=== PATIENT | female | born 1950 | race Caucasian/White ===

== ENCOUNTER 2018-10-27 20:49 | Inpatient (IN) | payer MEDICARE, OTHER ==
[~2018-10-27] VITALS: Ht 170.2 cm; Wt 85.8 kg
[2018-10-27] MEDS ORDERED: PROPOFOL 100 ML IV PRN (20:52)
[2018-10-27] MEDS ORDERED: FENTANYL PF 100 MCG/2ML ONE (21:08)
--- NOTE | 2018-10-27 21:21 | NUR ---
PT ABLE TO COMMUNICATE THAT SHE IS IN PAIN. PT NODS HEAD WHEN ASKED IF SHE IS HAVING A HEADACHE. MD AWARE. PT MEDICATED PER NOV.
[2018-10-27 21:25] LABS: BASOPHILS # (AUTO) 0.06 x10^3/uL (0-0.1); BASOPHILS % (AUTO) 1 % (0-1); EOSINOPHILS # (AUTO) 0.01 x10^3/uL (0-0.4); EOSINOPHILS % (AUTO) 0 % (1-7); LYMPHOCYTES # (AUTO) 1.35 x10^3/uL (1-3.4); LYMPHOCYTES % (AUTO) 11 % (22-44); MD NO; MEAN CORPUSCULAR HEMOGLOBIN 31.1 pg (27.0-34.8); MEAN CORPUSCULAR HGB CONC 33.8 g/dL (32.4-35.8); MEAN CORPUSCULAR VOLUME 92.1 fL (80-100); MEAN PLATELET VOLUME 8.1 fL (7.4-10.4); MONOCYTES # (AUTO) 0.69 x10^3/uL (0.2-0.8); MONOCYTES % (AUTO) 6 % (2-9); NEUTROPHILS # (AUTO) 10.09 x10^3/uL (1.8-6.8); NEUTROPHILS % (AUTO) 83 % (42-75); PLATELET COUNT 298 x10^3/uL (130-400); RED BLOOD COUNT 4.76 x10^6/uL (3.82-5.3); RED CELL DISTRIBUTION WIDTH 14.7 % (9.6-15.2)
[2018-10-27] MEDS ORDERED: PHEN-418 PO (21:30)
[2018-10-27] MEDS ORDERED: IBUP-1222 PO (21:30)
[2018-10-27] MEDS ORDERED: PLEASE ENTER ALLERGIES MC SCH (21:30)
[2018-10-27] MEDS ORDERED: FENTANYL PF 100 MCG/2ML IVPush PRN (21:30)
[2018-10-27 21:39] LABS: INTERNATIONAL NORMALIZED RATIO 0.95 (0.93-1.1); PROTHROMBIN TIME 10.1 Seconds (9.6-11.5)
--- NOTE | 2018-10-27 22:41 | NUR ---
FAMILY AT BEDSIDE. POC DISCUSSED. FAMILY GIVEN WATER PER REQUEST. ALL QUESTIONS ANSWERED. FAMILY AWARE AWAITING NEUROLOGY DECISION AT THIS TIME.
--- NOTE | 2018-10-27 22:45 | NUR ---
PT REMAINS CALM, AWAKENS TO VERBAL COMMANDS. ABLE TO SHAKE AND NOD HEAD TO ANSWER QUESTIONS. NEURO EXAM REMAINS UNCHANGED FROM INITIAL.
[2018-10-27] MEDS ORDERED: PROPOFOL 100 ML IV ONE (23:19)
--- NOTE | 2018-10-27 23:29 | NUR ---
propofol drip initially primed per order of dr espana upon pts arrival. dr basilio assumed care and stated to not run propofol. entire bottle of propofol wasted in med room with marylou dia.
[2018-10-27] MEDS ORDERED: ENALAPRILAT 1.25 MG/ML, 2ML IV PRN (23:30)
[2018-10-27] MEDS ORDERED: DOCUSATE 100 MG CAPSULE PO PRN (23:30)
[2018-10-27] MEDS ORDERED: INSTRUCTION SEE COMMENTS XX ONE (23:30)
[2018-10-27] MEDS ORDERED: POLYETHYLENE GLYCOL 17 GM PACKET PO PRN (23:30)
[2018-10-27] MEDS ORDERED: PROMETHAZINE 25 MG/ML, 1ML IM PRN (23:30)
[2018-10-27] MEDS ORDERED: BISACODYL 10 MG SUPP PR PRN (23:30)
[2018-10-27] MEDS ORDERED: morphine SULFATE 10 MG/ML, 1ML IVPush PRN (23:30)
[2018-10-27] MEDS ORDERED: LABETALOL 5MG/ML, 20ML IV PRN (23:30)
[2018-10-28] MEDS ORDERED: FENTANYL PF 100 MCG/2ML IVPush ONE
[2018-10-28] MEDS ORDERED: PROPOFOL 100 ML IV PRN (00:34)
[2018-10-28] MEDS ORDERED: GLUCAGON 1 MG IM PRN (01:00)
[2018-10-28] MEDS ORDERED: BISACODYL 10 MG SUPP PR PRN (01:00)
[2018-10-28] MEDS ORDERED: SENNOSIDES 8.8 MG/5 ML ORAL SOL NG PRN (01:00)
[2018-10-28] MEDS ORDERED: LACTULOSE 20 GM/30 ML UDC NG PRN (01:00)
[2018-10-28] MEDS ORDERED: ALBUTEROL/IPRATROPIUM 2.5MG/0.5MG, 3 ML INLINE SCH (01:00)
[2018-10-28] MEDS ORDERED: DEXTROSE 4 GM TAB.CHEW PO PRN (01:00)
[2018-10-28] MEDS ORDERED: DEXTROSE 50%, 50ML SYRINGE IVPush PRN (01:00)
[2018-10-28] MEDS ORDERED: LIDOCAINE-MPF 1%, 2ML ENDO PRN (01:00)
[2018-10-28] MEDS ORDERED: SENNA/DOCUSATE TABLET NG PRN (01:00)
[2018-10-28] MEDS ORDERED: PHARMACY MAY ADJ FOR RENAL FX MC SCH (01:00)
[2018-10-28 01:12] LABS: FREE T4 (FREE THYROXINE) 0.91 ng/dL (0.76-1.46); THYROID STIMULATING HORMONE 2.13 mIU/L (0.358-3.740)
[2018-10-28 01:29] LABS: ALANINE AMINOTRANSFERASE 33 U/L (12-78); ALBUMIN 3.7 g/dL (3.4-5.0); ANION GAP 9 mmol/L (5-15); BASOPHILS # (AUTO) 0.05 x10^3/uL (0-0.1); BASOPHILS % (AUTO) 0 % (0-1); CALCIUM 8.6 mg/dL (8.5-10.1); CHLORIDE 109 mmol/L (98-107); CREATININE 1.03 mg/dL (0.55-1.02); EOSINOPHILS # (AUTO) 0.01 x10^3/uL (0-0.4); EOSINOPHILS % (AUTO) 0 % (1-7); LYMPHOCYTES # (AUTO) 1.77 x10^3/uL (1-3.4); LYMPHOCYTES % (AUTO) 15 % (22-44); MD NO; MEAN CORPUSCULAR HEMOGLOBIN 31.2 pg (27.0-34.8); MEAN CORPUSCULAR HGB CONC 33.8 g/dL (32.4-35.8); MEAN CORPUSCULAR VOLUME 92.5 fL (80-100); MEAN PLATELET VOLUME 8.3 fL (7.4-10.4); MONOCYTES # (AUTO) 1.15 x10^3/uL (0.2-0.8); MONOCYTES % (AUTO) 10 % (2-9); NEUTROPHILS # (AUTO) 8.74 x10^3/uL (1.8-6.8); NEUTROPHILS % (AUTO) 75 % (42-75); PLATELET COUNT 285 x10^3/uL (130-400); RED BLOOD COUNT 4.63 x10^6/uL (3.82-5.3); RED CELL DISTRIBUTION WIDTH 14.9 % (9.6-15.2)
[2018-10-28 01:31] LABS: ALKALINE PHOSPHATASE 57 U/L (45-117); BILIRUBIN,TOTAL 0.5 mg/dL (0.2-1.0); TOTAL PROTEIN 7.4 g/dL (6.4-8.2); TRIGLYCERIDES 81 mg/dL (50-200)
[2018-10-28 01:53] LABS: HEMOGLOBIN A1C 5.8 % (4.2-6.3)
[2018-10-28 01:56] LABS: TROPONIN I < 0.015 ng/mL (0.000-0.045)
[2018-10-28] MEDS ORDERED: OMNIPAQUE 350 MG/ML, 100ML BOTTLE ONE (02:14)
[2018-10-28] MEDS: SODIUM CHLORIDE 3% 500 ML IV PRN ×2 (02:26→17:55)
[2018-10-28 02:51] VITALS: BP 114/69
[2018-10-28 05:21] LABS: CHLORIDE 112 mmol/L (98-107)
[2018-10-28 05:28] LABS: ALANINE AMINOTRANSFERASE 33 U/L (12-78); ALBUMIN 3.5 g/dL (3.4-5.0); ALKALINE PHOSPHATASE 55 U/L (45-117); ANION GAP 7 mmol/L (5-15); BILIRUBIN,TOTAL 0.5 mg/dL (0.2-1.0); CALCIUM 8.4 mg/dL (8.5-10.1); CHOL/HDL RATIO 3.2; CHOLESTEROL, TOTAL 199 mg/dL (140-239); HDL CHOL % 32 % (28-40); HDL CHOLESTEROL (DIRECT) 63 mg/dL (40-60); LDL CHOLESTEROL,CALCULATED 121 mg/dL (54-169); LDL/HDL RATIO 1.9 (0.5-3.0); TOTAL PROTEIN 7.1 g/dL (6.4-8.2); TRIGLYCERIDES 77 mg/dL (50-200); VLDL CHOLESTEROL 15 mg/dL (0-25)
[2018-10-28 05:39] LABS: MEAN CORPUSCULAR HEMOGLOBIN 30.5 pg (27.0-34.8); MEAN CORPUSCULAR HGB CONC 32.8 g/dL (32.4-35.8); MEAN CORPUSCULAR VOLUME 92.9 fL (80-100); MEAN PLATELET VOLUME 8.3 fL (7.4-10.4); PLATELET COUNT 289 x10^3/uL (130-400); RED BLOOD COUNT 4.51 x10^6/uL (3.82-5.3)
[2018-10-28 05:40] LABS: MD YES
[2018-10-28 05:44] LABS: LYMPHS% (MANUAL) 16 % (22-44); METAMYELOCYTES# (MANUAL) 0.13 x10^3/uL (0-0); METAMYELOCYTES% (MANUAL) 1 % (0-1); MONOS#(MANUAL) 0.79 x10^3/uL (0.3-2.7); MONOS% (MANUAL) 6 % (2-9); SEGS% (MANUAL) 77 % (42-75)
[2018-10-28 05:45] LABS: <PLATELET ESTIMATE> ADEQUATE; <PLT MORPHOLOGY> NORMAL PLT MORPH; ANISOCYTOSIS 1+
[2018-10-28 05:59] LABS: MICROSCOPIC NOT IND
[2018-10-28 06:04] LABS: CULTURE INDICATED? NO
[2018-10-28 06:16] LABS: AMPHETAMINE SCREEN, URINE Negative (Negative); BARBITURATE SCREEN, URINE Negative (Negative); BENZODIAZEPINE SCREEN, URINE Positive (Negative); CANNABINOID SCREEN, URINE Negative (Negative); COCAINE SCREEN, URINE Negative (Negative); METHADONE SCREEN, URINE Negative (Negative); OPIATE SCREEN, URINE Negative (Negative)
[2018-10-28] MEDS: INSULIN LISPRO 100 UNITS/ML, PEN SQ-INSULIN SCH ×4 (07:00→23:00)
[2018-10-28] MEDS: FAMOTIDINE 20 MG/2 ML IVPush SCH ×2 (09:24→21:13)
[2018-10-28] MEDS: SODIUM CHLORIDE FLUSH 10ML SYR IVF SCH ×2 (09:24→21:13)
--- NOTE | 2018-10-28 10:27 | NUR ---
TF GOAL: w/ propofol: PROMOTE @ 60ML/HR off propofol:PROMOTE @ 65ML/HR
[2018-10-28] MEDS ORDERED: AMPICILLIN/SULBACTAM 3 GM IM STA (10:53)
[2018-10-28] MEDS: AMPICILLIN/SULBACTAM 3 GM in SODIUM CHLORIDE 0.9% 100 ML IV SCH ×2 (12:38→19:17)
[2018-10-28 14:16] LABS: TROPONIN I < 0.015 ng/mL (0.000-0.045)
[2018-10-28] MEDS: LEVETIRACETAM 500 MG in SODIUM CHLORIDE 0.9% 100 ML IV SCH (14:41)
[2018-10-28] MEDS ORDERED: VECURONIUM 10 MG IVPush ONE (15:00)
[2018-10-28] MEDS ORDERED: MIDAZOLAM 1 MG/ML, 2ML IVPush ONE (15:00)
[2018-10-28] MEDS: OXYcodone IR 5MG TABLET PO PRN (21:27)
[2018-10-28] MEDS ORDERED: VECURONIUM 10 MG ONE (23:00)
[2018-10-28] MEDS ORDERED: MIDAZOLAM 1 MG/ML, 5ML ONE (23:00)
[2018-10-29] MEDS: AMPICILLIN/SULBACTAM 3 GM in SODIUM CHLORIDE 0.9% 100 ML IV SCH ×4 (00:44→18:48)
[2018-10-29] MEDS: LEVETIRACETAM 500 MG in SODIUM CHLORIDE 0.9% 100 ML IV SCH ×2 (02:15→14:09)
[2018-10-29 02:54] VITALS: BP 123/77
[2018-10-29 04:21] LABS: BASOPHILS # (AUTO) 0.04 x10^3/uL (0-0.1); BASOPHILS % (AUTO) 0 % (0-1); EOSINOPHILS % (AUTO) 0 % (1-7); LYMPHOCYTES # (AUTO) 1.52 x10^3/uL (1-3.4); LYMPHOCYTES % (AUTO) 14 % (22-44); MD NO; MEAN CORPUSCULAR HEMOGLOBIN 31.2 pg (27.0-34.8); MEAN CORPUSCULAR HGB CONC 33.6 g/dL (32.4-35.8); MEAN PLATELET VOLUME 8.1 fL (7.4-10.4); MONOCYTES # (AUTO) 1.25 x10^3/uL (0.2-0.8); MONOCYTES % (AUTO) 11 % (2-9); NEUTROPHILS # (AUTO) 8.23 x10^3/uL (1.8-6.8); NEUTROPHILS % (AUTO) 75 % (42-75); PLATELET COUNT 267 x10^3/uL (130-400); RED BLOOD COUNT 4.05 x10^6/uL (3.82-5.3); RED CELL DISTRIBUTION WIDTH 15.2 % (9.6-15.2)
[2018-10-29 04:34] LABS: ALANINE AMINOTRANSFERASE 29 U/L (12-78); ALBUMIN 3.1 g/dL (3.4-5.0); ANION GAP 6 mmol/L (5-15); CALCIUM 8.4 mg/dL (8.5-10.1); CHLORIDE 121 mmol/L (98-107); CREATININE 0.65 mg/dL (0.55-1.02)
[2018-10-29 04:36] LABS: ALKALINE PHOSPHATASE 48 U/L (45-117); BILIRUBIN,TOTAL 0.4 mg/dL (0.2-1.0); TOTAL PROTEIN 6.8 g/dL (6.4-8.2)
[2018-10-29] MEDS: INSULIN LISPRO 100 UNITS/ML, PEN SQ-INSULIN SCH ×4 (06:40→23:00)
[2018-10-29] MEDS: SODIUM CHLORIDE FLUSH 10ML SYR IVF SCH ×2 (09:01→21:57)
[2018-10-29] MEDS: FAMOTIDINE 20 MG/2 ML IVPush SCH ×2 (09:01→21:56)
[2018-10-29] MEDS: OXYcodone IR 5MG TABLET PO PRN ×2 (11:47→23:23)
[2018-10-29] MEDS: SODIUM CHLORIDE 3% 500 ML IV PRN (14:07)
[2018-10-29] MEDS ORDERED: THROMBIN 20,000 UNIT VIAL TP ONE (15:13)
[2018-10-29] MEDS ORDERED: BUPIVACAINE/PF-EPI 0.5% 1:200K ONE (15:13)
[2018-10-29] MEDS ORDERED: BACITRACIN 50,000 UNIT ONE (15:14)
[2018-10-29] MEDS ORDERED: DEXAMETHASONE 4 MG/ML, 1ML ONE (15:28)
[2018-10-29] MEDS ORDERED: ROCURONIUM 10MG/ML,5ML ONE (15:28)
[2018-10-29] MEDS ORDERED: FENTANYL PF 250 MCG/5ML ONE (15:53)
[2018-10-29] MEDS ORDERED: FENTANYL PF 100 MCG/2ML ONE (17:05)
[2018-10-29] MEDS: CEFAZOLIN PMX 1GM/50ML 50 ML IVPB SCH (19:24)
[2018-10-30] MEDS: AMPICILLIN/SULBACTAM 3 GM in SODIUM CHLORIDE 0.9% 100 ML IV SCH ×4 (00:31→17:40)
[2018-10-30] MEDS: LEVETIRACETAM 500 MG in SODIUM CHLORIDE 0.9% 100 ML IV SCH ×2 (02:15→14:40)
[2018-10-30] MEDS: CEFAZOLIN PMX 1GM/50ML 50 ML IVPB SCH (03:01)
[2018-10-30 04:16] VITALS: BP 134/69
[2018-10-30 04:51] LABS: BASOPHILS % (AUTO) 0 % (0-1); EOSINOPHILS % (AUTO) 0 % (1-7); LYMPHOCYTES # (AUTO) 1.24 x10^3/uL (1-3.4); LYMPHOCYTES % (AUTO) 10 % (22-44); MD NO; MEAN CORPUSCULAR HEMOGLOBIN 31.3 pg (27.0-34.8); MEAN CORPUSCULAR HGB CONC 33.9 g/dL (32.4-35.8); MEAN CORPUSCULAR VOLUME 92.2 fL (80-100); MEAN PLATELET VOLUME 8.1 fL (7.4-10.4); MONOCYTES # (AUTO) 0.89 x10^3/uL (0.2-0.8); MONOCYTES % (AUTO) 8 % (2-9); NEUTROPHILS # (AUTO) 9.72 x10^3/uL (1.8-6.8); NEUTROPHILS % (AUTO) 82 % (42-75); PLATELET COUNT 274 x10^3/uL (130-400); RED BLOOD COUNT 3.78 x10^6/uL (3.82-5.3); RED CELL DISTRIBUTION WIDTH 15.2 % (9.6-15.2)
[2018-10-30 04:53] LABS: ANION GAP 5 mmol/L (5-15); CALCIUM 8.7 mg/dL (8.5-10.1); CHLORIDE 123 mmol/L (98-107)
[2018-10-30] MEDS: INSULIN LISPRO 100 UNITS/ML, PEN SQ-INSULIN SCH ×4 (05:00→20:30)
[2018-10-30] MEDS: OXYcodone IR 5MG TABLET PO PRN ×3 (05:42→20:30)
[2018-10-30] MEDS: SODIUM CHLORIDE FLUSH 10ML SYR IVF SCH ×2 (09:15→20:24)
[2018-10-30] MEDS: FAMOTIDINE 20 MG/2 ML IVPush SCH ×2 (09:15→20:24)
[2018-10-30] MEDS ORDERED: MIDAZOLAM 1 MG/ML, 2ML IVPush PRN (11:30)
[2018-10-30] MEDS ORDERED: MIDAZOLAM HCL 25 MG in SODIUM CHLORIDE 0.9% 245 ML IV PRN (11:30)
[2018-10-30] MEDS: SODIUM CHLORIDE 3% 500 ML IV PRN (21:57)
[2018-10-31] MEDS: AMPICILLIN/SULBACTAM 3 GM in SODIUM CHLORIDE 0.9% 100 ML IV SCH ×2 (01:25→06:45)
[2018-10-31] MEDS: LEVETIRACETAM 500 MG in SODIUM CHLORIDE 0.9% 100 ML IV SCH ×2 (02:18→14:41)
[2018-10-31] MEDS: OXYcodone IR 5MG TABLET PO PRN ×2 (02:43→08:17)
[2018-10-31 05:55] LABS: ANION GAP 6 mmol/L (5-15); CALCIUM 8.3 mg/dL (8.5-10.1); CHLORIDE 122 mmol/L (98-107); TRIGLYCERIDES 95 mg/dL (50-200)
[2018-10-31 06:29] LABS: MD YES
[2018-10-31 06:32] LABS: MEAN CORPUSCULAR HEMOGLOBIN 31.1 pg (27.0-34.8); MEAN CORPUSCULAR HGB CONC 33.7 g/dL (32.4-35.8); MEAN CORPUSCULAR VOLUME 92.5 fL (80-100); MEAN PLATELET VOLUME 8.4 fL (7.4-10.4); PLATELET COUNT 246 x10^3/uL (130-400); RED BLOOD COUNT 3.37 x10^6/uL (3.82-5.3); RED CELL DISTRIBUTION WIDTH 15.1 % (9.6-15.2)
[2018-10-31 06:34] LABS: BAND#(MANUAL) 0.33 x10^3/uL; BANDS%(MANUAL) 3 % (0-7); LYMPH#(MANUAL) 3.16 x10^3/uL (1-3.4); LYMPHS% (MANUAL) 29 % (22-44); MONOS#(MANUAL) 0.76 x10^3/uL (0.3-2.7); MONOS% (MANUAL) 7 % (2-9); SEG#(MANUAL) 6.65 x10^3/uL (1.8-6.8); SEGS% (MANUAL) 61 % (42-75)
[2018-10-31 06:35] LABS: <PLATELET ESTIMATE> ADEQUATE; ANISOCYTOSIS 1+; LARGE PLATELETS 1+
[2018-10-31] MEDS: INSULIN LISPRO 100 UNITS/ML, PEN SQ-INSULIN SCH ×2 (07:00→11:00)
[2018-10-31] MEDS: SODIUM CHLORIDE FLUSH 10ML SYR IVF SCH ×2 (08:48→20:28)
[2018-10-31] MEDS: FAMOTIDINE 20 MG/2 ML IVPush SCH ×2 (08:48→20:28)
[2018-10-31] MEDS ORDERED: SODIUM CHLORIDE 3% 500 ML IV PRN ×2 (10:00→15:00)
[2018-10-31] MEDS ORDERED: RACEPINEPHRINE INH 2.25%, 0.5ML ONE (15:51)
[2018-10-31] MEDS: RACEPINEPHRINE INH 2.25%, 0.5ML NPPB PRN ×2 (16:00→22:41)
--- NOTE | 2018-10-31 17:20 | NUR ---
REC NPO; swallow precautions sheet posted at bedside. Addendum: 10/31/18 at [address] Amended: Links added.
[2018-10-31] MEDS: ACETAMINOPHEN 325 MG TABLET PO PRN (21:01)
[2018-11-01] MEDS: SODIUM CHLORIDE 3% 500 ML IV PRN ×2 (00:03→18:35)
[2018-11-01] MEDS: LEVETIRACETAM 500 MG in SODIUM CHLORIDE 0.9% 100 ML IV SCH ×2 (02:54→13:30)
[2018-11-01] MEDS ORDERED: SODIUM CHLORIDE 3% 500 ML IV PRN ×2 (03:30→19:00)
[2018-11-01] MEDS: ACETAMINOPHEN 325 MG TABLET PO PRN ×2 (04:20→13:25)
[2018-11-01 04:28] LABS: BASOPHILS # (AUTO) 0.08 x10^3/uL (0-0.1); BASOPHILS % (AUTO) 1 % (0-1); EOSINOPHILS % (AUTO) 1 % (1-7); LYMPHOCYTES # (AUTO) 2.58 x10^3/uL (1-3.4); LYMPHOCYTES % (AUTO) 28 % (22-44); MD NO; MEAN CORPUSCULAR HEMOGLOBIN 31.4 pg (27.0-34.8); MEAN CORPUSCULAR HGB CONC 34.2 g/dL (32.4-35.8); MEAN CORPUSCULAR VOLUME 91.8 fL (80-100); MEAN PLATELET VOLUME 8.1 fL (7.4-10.4); MONOCYTES # (AUTO) 0.91 x10^3/uL (0.2-0.8); MONOCYTES % (AUTO) 10 % (2-9); NEUTROPHILS % (AUTO) 60 % (42-75); PLATELET COUNT 274 x10^3/uL (130-400); RED BLOOD COUNT 3.33 x10^6/uL (3.82-5.3); RED CELL DISTRIBUTION WIDTH 14.8 % (9.6-15.2)
[2018-11-01 04:39] LABS: ANION GAP 7 mmol/L (5-15); CALCIUM 8.2 mg/dL (8.5-10.1); CHLORIDE 119 mmol/L (98-107)
[2018-11-01 04:40] LABS: CREATININE 0.61 mg/dL (0.55-1.02)
[2018-11-01] MEDS: SODIUM CHLORIDE FLUSH 10ML SYR IVF SCH ×2 (09:06→20:45)
[2018-11-01] MEDS: FAMOTIDINE 20 MG/2 ML IVPush SCH (09:06)
--- NOTE | 2018-11-01 12:22 | NUR ---
Recommend PUREE/ NTL with adherence to the following strategies: -Up at 90 degrees -No straws -Small bites -Check for pocketing Crockett sheet posted at bedside Addendum: 11/01/18 at 1223 by RANDY RASMUSSEN Amended: Links added.
[2018-11-02] MEDS: LEVETIRACETAM 500 MG in SODIUM CHLORIDE 0.9% 100 ML IV SCH (02:15)
[2018-11-02] MEDS: ONDANSETRON 2MG/ML, 2ML IVPush PRN ×3 (04:40→17:40)
[2018-11-02] MEDS: OXYcodone IR 5MG TABLET PO PRN ×3 (04:40→17:40)
[2018-11-02 05:57] LABS: BASOPHILS % (AUTO) 1 % (0-1); EOSINOPHILS # (AUTO) 0.32 x10^3/uL (0-0.4); EOSINOPHILS % (AUTO) 3 % (1-7); LYMPHOCYTES # (AUTO) 2.63 x10^3/uL (1-3.4); LYMPHOCYTES % (AUTO) 27 % (22-44); MD NO; MEAN CORPUSCULAR HEMOGLOBIN 31.3 pg (27.0-34.8); MEAN CORPUSCULAR HGB CONC 33.9 g/dL (32.4-35.8); MEAN CORPUSCULAR VOLUME 92.6 fL (80-100); MEAN PLATELET VOLUME 8.6 fL (7.4-10.4); MONOCYTES # (AUTO) 0.79 x10^3/uL (0.2-0.8); MONOCYTES % (AUTO) 8 % (2-9); NEUTROPHILS # (AUTO) 5.79 x10^3/uL (1.8-6.8); NEUTROPHILS % (AUTO) 60 % (42-75); PLATELET COUNT 317 x10^3/uL (130-400); RED BLOOD COUNT 3.68 x10^6/uL (3.82-5.3); RED CELL DISTRIBUTION WIDTH 14.7 % (9.6-15.2)
[2018-11-02 06:07] LABS: ANION GAP 5 mmol/L (5-15); CALCIUM 8.4 mg/dL (8.5-10.1); CHLORIDE 115 mmol/L (98-107); CREATININE 0.53 mg/dL (0.55-1.02)
[2018-11-02] MEDS ORDERED: POTASSIUM CHLORIDE 20 MEQ TAB.ER.PRT PO ONE (07:30)
[2018-11-02] MEDS: SODIUM CHLORIDE FLUSH 10ML SYR IVF SCH ×2 (09:00→20:27)
[2018-11-02 18:50] VITALS: BP 120/78
[2018-11-02 19:40] VITALS: BP 106/68
[2018-11-02] MEDS: ACETAMINOPHEN 325 MG TABLET PO PRN (20:27)
[2018-11-02] MEDS: LEVETIRACETAM 500 MG TABLET PO SCH (20:27)
[2018-11-03 02:01] VITALS: BP 116/73
[2018-11-03] MEDS: OXYcodone IR 5MG TABLET PO PRN ×5 (03:10→22:33)
[2018-11-03] MEDS: ONDANSETRON 4 MG TABLET PO PRN ×4 (03:13→22:34)
[2018-11-03 05:18] LABS: BASOPHILS # (AUTO) 0.06 x10^3/uL (0-0.1); BASOPHILS % (AUTO) 1 % (0-1); EOSINOPHILS # (AUTO) 0.34 x10^3/uL (0-0.4); EOSINOPHILS % (AUTO) 4 % (1-7); LYMPHOCYTES # (AUTO) 2.41 x10^3/uL (1-3.4); LYMPHOCYTES % (AUTO) 26 % (22-44); MD NO; MEAN CORPUSCULAR HEMOGLOBIN 31.4 pg (27.0-34.8); MEAN CORPUSCULAR HGB CONC 33.8 g/dL (32.4-35.8); MEAN PLATELET VOLUME 8.2 fL (7.4-10.4); MONOCYTES # (AUTO) 0.84 x10^3/uL (0.2-0.8); MONOCYTES % (AUTO) 9 % (2-9); NEUTROPHILS # (AUTO) 5.57 x10^3/uL (1.8-6.8); NEUTROPHILS % (AUTO) 60 % (42-75); PLATELET COUNT 341 x10^3/uL (130-400); RED BLOOD COUNT 3.85 x10^6/uL (3.82-5.3); RED CELL DISTRIBUTION WIDTH 14.6 % (9.6-15.2)
[2018-11-03 05:32] LABS: ANION GAP 6 mmol/L (5-15); CALCIUM 8.8 mg/dL (8.5-10.1); CHLORIDE 108 mmol/L (98-107); CREATININE 0.71 mg/dL (0.55-1.02)
[2018-11-03 07:26] VITALS: BP 120/82
[2018-11-03] MEDS ORDERED: POTASSIUM CHLORIDE 20 MEQ TAB.ER.PRT PO ONE (08:00)
[2018-11-03] MEDS: ONDANSETRON 2MG/ML, 2ML IVPush PRN (08:40)
[2018-11-03] MEDS: LEVETIRACETAM 500 MG TABLET PO SCH ×2 (08:40→21:17)
[2018-11-03] MEDS: SODIUM CHLORIDE FLUSH 10ML SYR IVF SCH ×2 (08:40→21:17)
[2018-11-03] MEDS ORDERED: LEVE500T53 PO (11:43)
[2018-11-03 12:36] VITALS: BP 125/75
[2018-11-03 19:40] VITALS: BP 120/69
[2018-11-04 01:21] VITALS: BP 121/75
[2018-11-04] MEDS: ONDANSETRON 4 MG TABLET PO PRN ×5 (02:45→20:48)
[2018-11-04] MEDS: OXYcodone IR 5MG TABLET PO PRN ×5 (02:45→20:45)
[2018-11-04 06:48] LABS: BASOPHILS # (AUTO) 0.06 x10^3/uL (0-0.1); BASOPHILS % (AUTO) 1 % (0-1); EOSINOPHILS # (AUTO) 0.08 x10^3/uL (0-0.4); EOSINOPHILS % (AUTO) 1 % (1-7); LYMPHOCYTES # (AUTO) 1.94 x10^3/uL (1-3.4); LYMPHOCYTES % (AUTO) 21 % (22-44); MD NO; MEAN CORPUSCULAR HEMOGLOBIN 30.6 pg (27.0-34.8); MEAN CORPUSCULAR VOLUME 92.8 fL (80-100); MONOCYTES # (AUTO) 0.78 x10^3/uL (0.2-0.8); MONOCYTES % (AUTO) 8 % (2-9); NEUTROPHILS # (AUTO) 6.62 x10^3/uL (1.8-6.8); NEUTROPHILS % (AUTO) 70 % (42-75); PLATELET COUNT 383 x10^3/uL (130-400); RED BLOOD COUNT 4.23 x10^6/uL (3.82-5.3); RED CELL DISTRIBUTION WIDTH 14.6 % (9.6-15.2)
[2018-11-04 06:50] LABS: ANION GAP 6 mmol/L (5-15); CALCIUM 9.1 mg/dL (8.5-10.1); CHLORIDE 108 mmol/L (98-107); CREATININE 0.72 mg/dL (0.55-1.02)
[2018-11-04 07:51] VITALS: BP 137/75
[2018-11-04] MEDS: LEVETIRACETAM 500 MG TABLET PO SCH ×2 (09:52→20:45)
[2018-11-04] MEDS: SODIUM CHLORIDE FLUSH 10ML SYR IVF SCH ×2 (11:17→20:45)
[2018-11-04 14:30] VITALS: BP 103/68
[2018-11-04 19:56] VITALS: BP 129/78
[2018-11-05] MEDS: OXYcodone IR 5MG TABLET PO PRN ×3 (00:48→15:35)
[2018-11-05] MEDS: ONDANSETRON 4 MG TABLET PO PRN ×3 (00:57→15:35)
[2018-11-05 00:59] VITALS: BP 104/67
[2018-11-05 05:44] LABS: BASOPHILS # (AUTO) 0.08 x10^3/uL (0-0.1); BASOPHILS % (AUTO) 1 % (0-1); EOSINOPHILS # (AUTO) 0.37 x10^3/uL (0-0.4); EOSINOPHILS % (AUTO) 4 % (1-7); LYMPHOCYTES # (AUTO) 3.06 x10^3/uL (1-3.4); LYMPHOCYTES % (AUTO) 31 % (22-44); MD NO; MEAN CORPUSCULAR HEMOGLOBIN 31.2 pg (27.0-34.8); MEAN CORPUSCULAR HGB CONC 33.5 g/dL (32.4-35.8); MEAN CORPUSCULAR VOLUME 93.2 fL (80-100); MEAN PLATELET VOLUME 8.1 fL (7.4-10.4); MONOCYTES # (AUTO) 0.96 x10^3/uL (0.2-0.8); MONOCYTES % (AUTO) 10 % (2-9); NEUTROPHILS # (AUTO) 5.41 x10^3/uL (1.8-6.8); NEUTROPHILS % (AUTO) 55 % (42-75); PLATELET COUNT 365 x10^3/uL (130-400); RED BLOOD COUNT 3.85 x10^6/uL (3.82-5.3); RED CELL DISTRIBUTION WIDTH 14.6 % (9.6-15.2)
[2018-11-05 05:49] LABS: ANION GAP 6 mmol/L (5-15); CALCIUM 8.5 mg/dL (8.5-10.1); CHLORIDE 108 mmol/L (98-107); CREATININE 0.76 mg/dL (0.55-1.02)
[2018-11-05] MEDS: LEVETIRACETAM 500 MG TABLET PO SCH (07:55)
[2018-11-05] MEDS: SODIUM CHLORIDE FLUSH 10ML SYR IVF SCH (09:00)
[2018-11-05 13:44] VITALS: BP 97/68
[2018-11-05 16:25] VITALS: BP 100/59
== END 2018-11-05 18:25 | DRG 23 ==
LOC: ED 21:10 → EDIP 21:15 → ED 21:41 → CCU 23:17 → 4NOR 11-02 17:09
PROVIDERS: ADMIT Internal Medicine; ATTEND Internal Medicine
PROC: 5A1945Z Respiratory Ventilation, 24-96 Consecutive Hours (ICD-10-PCS; 2018-10-27)
PROC: 0B9F8ZZ Drainage of Right Lower Lung Lobe, Via Natural or Artificial Opening Endoscopic (ICD-10-PCS; 2018-10-28)
PROC: 0B998ZZ Drainage of Lingula Bronchus, Via Natural or Artificial Opening Endoscopic (ICD-10-PCS; 2018-10-28)
PROC: 0T9B70Z Drainage of Bladder with Drainage Device, Via Natural or Artificial Opening (ICD-10-PCS; 2018-10-28)
PROC: 0B9B8ZZ Drainage of Left Lower Lobe Bronchus, Via Natural or Artificial Opening Endoscopic (ICD-10-PCS; 2018-10-28)
PROC: 04HY32Z Insertion of Monitoring Device into Lower Artery, Percutaneous Approach (ICD-10-PCS; 2018-10-28)
PROC: 00C70ZZ Extirpation of Matter from Cerebral Hemisphere, Open Approach (ICD-10-PCS; principal; 2018-11-01)
PROC: 02HV33Z Insertion of Infusion Device into Superior Vena Cava, Percutaneous Approach (ICD-10-PCS; 2018-11-01)
PROC: BD11YZZ Fluoroscopy of Esophagus using Other Contrast (ICD-10-PCS; 2018-11-01)
DX: I61.1 Nontraumatic intracerebral hemorrhage in hemisphere, cortical (principal); J96.00 Acute respiratory failure, unspecified whether with hypoxia or hypercapnia; G93.5 Compression of brain; G93.6 Cerebral edema; J69.0 Pneumonitis due to inhalation of food and vomit; G81.94 Hemiplegia, unspecified affecting left nondominant side; E87.2 Acidosis; R41.4 Neurologic neglect syndrome; Z99.11 Dependence on respirator [ventilator] status; I95.9 Hypotension, unspecified; R40.2410 Glasgow coma scale score 13-15, unspecified time; R53.81 Other malaise; R73.9 Hyperglycemia, unspecified; I68.0 Cerebral amyloid angiopathy; Z87.440 Personal history of urinary (tract) infections; Z90.81 Acquired absence of spleen
CPT/HCPCS: 31624; 36415; 36600; 51702; 70450; 70496; 70498; 71045; 74230; 80047; 80048; 80053; 80061; 80307; 81003; 82803; 82962; 83036; 83605; 83735; 84100; 84295; 84439; 84443; 84478; 84484; 85025; 85610; 85730; 87040; 87070; 87081; 87102; 87205; 93005; 93306; 93880; 94002; 94003; 94640; 99291; C1713; G0378; J0295; J0690; J1100; J1953; J2250; J2405; J3010; Q0162; Q9967; J1815; J2270; J3490

== ENCOUNTER 2019-02-05 12:15 | Outpatient (CLI) | payer MEDICARE, OTHER ==
[~2019-02-05 12:15] MED LIST: IBUP-1222 PO; LEVE500T53 PO; PHEN-418 PO
== END 2019-02-05 23:59 | disposition home or self-care (01) ==
LOC: CARD 12:15
PROVIDERS: ATTEND Psychiatry & Neurology Neurology
DX: R56.9 Unspecified convulsions (principal); R94.01 Abnormal electroencephalogram [EEG]
CPT/HCPCS: 95819